=== PATIENT | male | born 1950 | race Caucasian/White ===

== ENCOUNTER → 2019-12-23 | Outpatient (CLI) | payer MEDICARE ==
--- NOTE | 2019-12-23 19:28 | RADIOLOGY REPORT (SQ) ---
EXAM DESCRIPTION: U/S SCROTUM W/O DOPPLER COMPLETED DATE/TIME: 12/23/2019 5:17 pm REASON FOR STUDY: N50.89 OTHER SPECIFIED DISORDERS OF THE MALE GENITAL ORGANS N50.89 OTHER SPECIFIE D DISORDERS OF THE MALE GENITAL ORGANS COMPARISON: None. TECHNIQUE: Static and realtime bell scale imaging of the scrotum and testes. Selected color Doppler and spectral images recorded to document blood flow. LIMITATIONS: None. FINDINGS: RIGHT: TESTICLE: Normal size, 4.3 x 3.2 x 2.7 cm. The right testicle is displaced into the dorsal aspect of the hemiscrotum by a massive complex right scrotal hydrocele, 11 x 10 x 9 cm in size. Right scrotal hematoma or abscess could not excluded. We were able to obtain color flow around the periphery of t he right testicle. It is difficult to obtain color flow or Doppler tracings of the testicle itself. EPIDIDYMIS: Grossly normal HYDROCELE OR VARICOCELE: Large right scrotal complex fluid collection with septations, 11 x 10 x 9 cm in size HERNIA OR EXTRA-TESTICULAR MASS: Large right scrotal complex fluid collection OTHER: No other significant finding. LEFT: TESTICLE: Normal size, 4.3 x 3.1 x 2.6 cm. Normal echotexture. Normal blood flow. No mass. EPIDIDYMIS: Normal size, 1.7 cm left epididymal cyst. HYDROCELE OR VARICOCELE: No. HERNIA OR EXTRA-TESTICULAR MASS: No. OTHER: No other significant finding. IMPRESSION: Large right complex hydrocele with displacement of the right testicle into the dorsum of the hemiscrotum. Differential is hematoma versus abscess. Unable to obtain color flow or Doppler tracings within the right testicle itself. Color flow around the periphery of the right testicle was seen today. This is worrisome for torsion TECHNICAL DOCUMENTATION: JOB ID: [id number] 2010 [employer]- All Rights Reserved Reading location - IP/workstation name: [email or web address]
== END ==
LOC: RAD 16:29
PROVIDERS: ATTEND Surgery
DX: N50.3 Cyst of epididymis (principal); N43.3 Hydrocele, unspecified
CPT/HCPCS: 76870